=== PATIENT | male | born 1935 | race Caucasian/White ===

== ENCOUNTER 2021-01-06 11:21 | Outpatient (CLI) | payer MEDICARE, OTHER ==
[2021-01-06 13:23] LABS: Actual Bicarbonate (HCO3a) 22.1 mEq/L (22-28); Base Excess (BEa) 0.7 mEq/L (-2.0 to +3.0); CO2 Tension 25.8 mmHg (35.0-45.0); Calcium, Ionized (arterial) 1.17 mmol/L (1.12-1.30); Carboxyhemoglobin (COHb) 0.1 gm% (0.0-3.0); Hemoglobin (Hb) 11.5 g/dL (14.0-18.0); O2 Tension (PaO2), arterial 80.5 mmHg (> 60.0); Potassium - ABG Lab 3.6 mmol/L (3.70-5.30); Puncture Site LRA; pH, Arterial 7.55 (7.35-7.45)
== END 2021-01-06 11:22 | disposition home or self-care (01) ==
LOC: CSHCP 11:21
PROVIDERS: ATTEND Internal Medicine Pulmonary Disease
DX: R06.09 Other forms of dyspnea (principal); R94.2 Abnormal results of pulmonary function studies
CPT/HCPCS: 36600; 82805; 94060; 94726; 94729; 94760